=== PATIENT | female | born 1945 | race Two or more races ===

== ENCOUNTER 2017-01-29 17:02 | Emergency (ER) | payer OTHER, MEDICAID ==
[~2017-01-29] VITALS: Ht 152.4 cm; Wt 56.7 kg
[2017-01-29 18:30] VITALS: BP 151/71
== END 2017-01-29 18:44 | disposition home or self-care (01) ==
LOC: ER 17:07
DX: J40 Bronchitis, not specified as acute or chronic (principal); F17.210 Nicotine dependence, cigarettes, uncomplicated
CPT/HCPCS: 71020

== ENCOUNTER 2017-09-09 13:33 | Emergency (ER) | payer OTHER, MEDICAID ==
[~2017-09-09] VITALS: Ht 147.3 cm; Wt 53.1 kg
[2017-09-09 14:27] LABS: Basophils # (auto) 0.1 uL; Basophils % (auto) 0.8 % (0.0-2.0); Eosinophils # (auto) 0.1 uL; Eosinophils % (auto) 0.8 % (0.0-7.0); Hematocrit 45.6 % (36.0-46.0); Hemoglobin 15.6 g/dL (12.2-16.2); Lymphocytes # (auto) 3.7 uL; Lymphocytes % (auto) 53.3 % (10.0-50.0); Mean Corpuscular Hemoglobin 30.4 pg (28.0-32.0); Mean Corpuscular Hgb Conc. 34.2 g/dL (32.0-36.0); Mean Corpuscular Volume 88.7 fL (80.0-100.0); Monocytes # (auto) 0.5 uL; Neutrophils # (auto) 2.6 uL; Neutrophils % (auto) 38.1 % (37.0-80.0); Nucleated Red Blood Cells % 0.2 %; Platelet Count (auto) 208 10^3/uL (140-450); Red Blood Cells 5.14 10^6/uL (4.0-5.20); Red Cell Distribution Width 13.3 % (11.8-14.3); White Blood Cell 6.9 10^3/uL (4.4-10.8)
[2017-09-09 14:46] LABS: Albumin 3.9 g/dL (3.4-5.0); BUN/Creatinine Ratio 12.9; Bilirubin, Total 0.4 mg/dL (0.2-1.0); Potassium 4.1 mmol/L (3.5-5.1); Total Protein 7.6 g/dL (6.4-8.2)
[2017-09-09 14:47] LABS: Urine Bacteria NONE SEEN /hpf (None Seen); Urine Blood Negative /uL (Negative); Urine Specific Gravity 1.004 (1.001-1.035); Urine WBC <1 /hpf (0 - 5)
[2017-09-09] MEDS ORDERED: PROMETHAZINE HCL 25 MG/ML 1ML IV PRN (16:15)
[2017-09-09] MEDS ORDERED: KETOROLAC TROMETH 30 MG/ML 1ML VIAL IV ONE (16:15)
[2017-09-09 16:54] LABS: Magnesium 2.7 mg/dL (1.6-2.6)
[2017-09-09 17:35] VITALS: BP 74/44
== END 2017-09-09 18:11 | disposition home or self-care (01) ==
LOC: ER 13:33
DX: R10.33 Periumbilical pain (principal); E11.9 Type 2 diabetes mellitus without complications; F17.210 Nicotine dependence, cigarettes, uncomplicated; Z90.710 Acquired absence of both cervix and uterus
CPT/HCPCS: 36415; 71046; 74176; 80053; 81001; 83690; 83735; 84443; 85025; 93005; 96374; 99285; J1885; J7030